=== PATIENT | male | born 1990 | race Hispanic/Latino ===

== ENCOUNTER 2020-02-20 19:16 | Emergency (ER) | payer MEDICAID ==
[2020-02-20 20:07] LABS: Bilirubin,Urine NEG (Negative); Blood,Urine NEG (Negative); Color,Urine Yellow (Yellow); Mucus,Urine 2+ /HPF; Urobilinogen,Urine < 2.0 mg/dL (<2.0)
[2020-02-20 20:11] LABS: Basophils # (Auto) 0.1 K/mm3 (0.0-0.1); Basophils % (Auto) 0.8 % (0.0-1.8); Eosinophils # (Auto) 0.7 K/mm3 (0.0-0.4); Hematocrit 36.4 % (35.5-45.6); Hemoglobin 12.1 gm/dl (11.8-15.2); Lymphocytes # (Auto) 3.5 K/mm3 (1.2-5.4); Lymphocytes % (Auto) 33.3 % (13.4-35.0); Mean Corpuscular HGB Conc 33 % (32-34); Mean Corpuscular Volume 89 fl (84-94); Monocytes # (Auto) 1.5 K/mm3 (0.0-0.8); Monocytes % (Auto) 13.7 % (0.0-7.3); Platelet Count 285 K/mm3 (140-440); Red Blood Count 4.09 M/mm3 (3.65-5.03); Red Cell Distribution Width 14.1 % (13.2-15.2)
[2020-02-20 20:14] LABS: Amphetamine Screen,Urine Negative; Benzodiazepines Screen,Urine Negative; Cocaine Screen,Urine Negative; Methadone Screen,Urine Negative; Opiate Screen,Urine Negative
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
[2020-02-20 20:44] LABS: Cannabinoid Screen,Urine Positive
[2020-02-20 20:58] LABS: BUN/Creatinine Ratio 18; Blood Urea Nitrogen 14 mg/dL (9-20); Hemolysis Index 8
[2020-02-21 07:51] VITALS: BP 129/83
--- NOTE | 2020-02-21 09:03 | Consultation ---
History of Present Illness - Reason for Consult Consult date: 02/21/20 Reason for consult: SI - History of Present Psychiatric Illness Won Waters is a 29y/o male who presented to the ER for suicidal ideation. During my interview, the patient is lying down. He is speaking in a very low tone. He verbalizes feeling "depressed." he says he hears things. When asked what was he hearing, he replies "just things, I just hear stuff." He denies any illicit drug use outside of "weed." He also denies alcohol or nicotine use. The patient says he was diagnosed with "schizophrenia in the past." He says he "has not been on meds because I don't have any money." He also denies seeing a psychiatrist in a "long time." PAST PSYCHIATRIC HISTORY Diagnoses: schizophrenia Suicide attempts or Self-harm behavior: "few times" Prior psychiatric hospitalizations: a lot Substance Abuse history: "weed" Previous psychiatric medications tried: could not recall Outpatient treatment: Denies PAST MEDICAL HISTORY: None reported Family Psychiatric History: None reported or documented SOCIAL HISTORY Marital Status: Single Living Arrangements: Homeless Employment Status: Disabled Access to guns/weapons: None reported Education: 10th grade History of Abuse: None reported Legal History: denies REVIEW OF SYSTEMS Constitutional: Negative for weight loss ENT: Negative for stridor Respiratory: Negative for cough or hemoptysis All other systems reviewed and are negative MENTAL STATUS EXAMINATION General Appearance and Behavior: Age appropriate, good hygiene, wearing appropriate clothes, fair eye contact Cooperation: Participating/engaged, but Guarded Psychomotor Behavior: Psychomotor normal Mood: "depressed" Affect and affective range: congruent with stated mood Thought Process: goal directed Thought Content: hallucinations Speech: low tone normal pace Suicidal Ideation: Yes Homicidal Ideation: Denies Hallucinations: Auditory Delusions: None elicited Impulse Control: Impaired Insight and Judgment: impaired insight and judgment Memory: Normal Attention: impaired Orientation: Alert, oriented Assessment and Plan (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 PSYCHOTHERAPY: Supportive psychotherapy provided MEDICAL: Per primary team DELIRIUM PRECAUTIONS: Please re-orient patient frequently, keep lights on during the day, and minimize benzodiazepines and opiates as these medications could worsen patient's confusion. DEBATE DIRECTOR: DISPOSITION: Recommend acute inpatient psychiatric hospitalization at this time LEGAL STATUS: 1013 FOLLOW-UP: Will follow Thank you for the consult. Please contact with any questions and/or concerns. Case staffed with Dr. Dennis Medications and Allergies Allergies Allergy/AdvReac Type Severity Reaction Status Date / Time No Known Allergies Allergy Unverified 02/20/20 19:32 Home Medications Medication Instructions Recorded Confirmed Last Taken Type diphenhydrAMINE [Benadryl CAP] 25 mg PO QHS PRN 02/20/20 02/20/20 Unknown History Mental Status Exam - Vital signs Last Vital Signs Temp 98.4 F 02/21/20 07:51 Pulse 84 02/21/20 07:51 Resp 20 02/21/20 07:51 BP 129/83 02/21/20 07:51 Pulse Ox 98 02/21/20 07:51 Results Result Diagrams: 02/20/20 19:55 02/20/20 19:55 Abnormal lab results 02/20/20 02/20/20 02/20/20 Range/Units 19:55 19:55 19:55 [place] % (Auto) (0.0-7.3) % Eos % (Auto) (0.0-4.3) % [place] # (Auto) (0.0-0.8) K/mm3 Eos # (Auto) (0.0-0.4) K/mm3 Sodium 136 L (137-145) mmol/L Potassium 3.5 L (3.6-5.0) mmol/L Glucose 120 H (75-100) mg/dL Ur Specific [place] (1.003-1.030) Salicylates < 0.3 L (2.8-20.0) mg/dL Acetaminophen 5.0 L (10.0-30.0) ug/mL 02/20/20 02/20/20 Range/Units 19:[address] [place] % (Auto) 13.7 H (0.0-7.3) % Eos % (Auto) 7.0 H (0.0-4.3) % [place] # (Auto) 1.5 H (0.0-0.8) K/mm3 Eos # (Auto) 0.7 H (0.0-0.4) K/mm3 Sodium (137-145) mmol/L Potassium (3.6-5.0) mmol/L Glucose (75-100) mg/dL Ur Specific [place] 1.033 H (1.003-1.030) Salicylates (2.8-20.0) mg/dL Acetaminophen (10.0-30.0) ug/mL All other labs normal.
[2020-02-21] MEDS ORDERED: risperiDONE 0.25 MG TAB PO SCH (10:00)
[2020-02-21] MEDS ORDERED: DIVALPROEX DR 125 MG TAB PO SCH (10:00)
[2020-02-21] MEDS ORDERED: traZODone 50 MG TAB PO SCH (22:00)
== END 2020-02-21 15:58 ==
LOC: ED 19:16
DX: F32.89 Other specified depressive episodes (principal); F31.9 Bipolar disorder, unspecified; F20.89 Other schizophrenia
CPT/HCPCS: 36415; 80048; 80307; 80320; 81001; 85025; G0480